=== PATIENT | male | born 1990 | race Caucasian/White ===

== ENCOUNTER 2017-04-04 12:15 | Inpatient (IN) | payer SELFPAY ==
[~2017-04-04] VITALS: Ht 188 cm; Wt 79.9 kg
--- NOTE | ~2017-04-04 | HP ---
PATIENT'S NAME: SARIAH LEIGH [facility] AGE: 26 Y [address] ROOM: [place] [address] LOCATION: GPCU ADMIT DATE: 04/04/2017 History & Physical DISCHARGE DATE: FAMILY PHYSICIAN: PHYSICIAN, NO ATTENDING PHYSICIAN: MALIA CONKLIN DATE OF SERVICE: CHIEF COMPLAINT: Hyperglycemia, HHS. HISTORY OF PRESENT ILLNESS: This is a 26-year-old male with a known history of type 1 diabetes diagnosed about four years ago, presents to the emergency room with complaints of abdominal pain and intractable nausea. The patient reports that he woke up from his sleep around midnight last night with abdominal cramping, then followed by intractable nausea and vomiting, and he has had a few episodes throughout the day. He checked his blood sugar at that point, recorded the high readings, and gave himself some short-acting insulin, but he continued to have these symptoms and blood sugars stayed high. At that point, he decided to come to the Emergency Room. Upon evaluation at the Emergency Room, the patient was found to have blood sugars in the 800s with the other lab abnormalities. The patient continued to complain of nausea and vomiting and abdominal cramping. The patient tells me that he did have dinner at a restaurant, and thinks that this might be what caused his initial symptoms, which later has led to hyperglycemia. In any case, during my evaluation, the patient is symptomatically better, and still complains of some abdominal cramping, but otherwise denies any nausea or vomiting currently. He denies any other signs and symptoms of indwelling infection including no shortness of breath or cough. No dysuria or frequency of urination type symptoms as well. PAST MEDICAL HISTORY: 1. Type 2 diabetes. 2. History of TIA versus CVA. SOCIAL HISTORY: He smokes about a pack a day. No illicit drug use. Occasional alcohol use. FAMILY HISTORY: The patient has a history of heart disease in his father. REVIEW OF SYSTEMS: All systems have been reviewed and were all negative, except as described in the HPI. PATIENT'S NAME: SARIAH LEIGH [facility] AGE: 26 Y [address] ROOM: [place] [address] LOCATION: GPCU ADMIT DATE: 04/04/2017 History & Physical DISCHARGE DATE: FAMILY PHYSICIAN: PHYSICIAN, NO ATTENDING PHYSICIAN: MALIA CONKLIN PHYSICAL EXAMINATION: VITAL SIGNS: Blood pressure was 121/79, pulse was 87, respiratory rate was 20, temperature was 97.2, and saturating 96% on room air. GENERAL: Awake, alert, and oriented x3, in moderate distress. HEENT: Dry mucosal membranes. No scleral icterus or conjunctival pallor was noted. SKIN: Without rash or lesions noted. CHEST: Clear to auscultation bilaterally. HEART: S1 and S2. Regular rate and rhythm. ABDOMEN: Soft. Mild diffuse tenderness to palpation. Otherwise, nondistended with positive bowel sounds. NEUROLOGICAL: No focal neurological deficits were noted. MUSCULOSKELETAL: No joint tenderness, swelling, or erythema was noted. LABORATORY DATA: Blood sugar 858. No ketones in urine. The pH was 7.38 and bicarb was 22. ASSESSMENT AND PLAN: 1. Hyperglycemic hyperosmolar syndrome. Blood sugar presentation is above 800, but not quite in diabetic ketoacidosis, but he is in some ketosis. The pH is 7.38 and bicarb is 22. We will treat this hyperglycemic hyperosmolar syndrome with insulin drip and aggressive fluid resuscitation. We will aim for a blood sugar less than 150 and we will convert him back to his own insulin regimen, which is insulin 70/30, 25 b.i.d. with a sliding scale on top of that. 2. Intractable nausea and vomiting, possibly related to gastroenteritis or a food-borne illness. Continue conservative management and supportive care with fluids and pain and nausea medications. This does appear to be the culprit for his hyperglycemia. The patient reports good compliance with his medications. 3. Type 1 diabetes, diagnosed about four years ago with similar presentation, except at the time, sounds like he was in diabetic ketoacidosis. MALIA CONKLIN MD BG/modl /[id number] D: [id number] T: [id number] HISTORY & PHYSICAL
--- NOTE | ~2017-04-04 | DS ---
PATIENT'S NAME: SARIAH LEIGH [facility] AGE: 26 Y [address] ROOM: [address] [address] LOCATION: GPCU ADMIT DATE: 04/04/2017 Discharge Summary DISCHARGE DATE: 04/05/2017 FAMILY PHYSICIAN: PHYSICIAN, NO ATTENDING PHYSICIAN: Rafael Barry PRINCIPAL DISCHARGE DIAGNOSIS: Hyperosmolar hyperglycemic nonketotic syndrome. SECONDARY DIAGNOSES: 1. Type 1 diabetes mellitus, uncontrolled with hemoglobin A1c greater than 10. 2. Acute kidney injury, resolved. 3. Tobaccoism. 4. Hyponatremia, resolved. 5. Hypophosphatemia, resolved. CONSULTATIONS: None. PROCEDURES: None. BRIEF HISTORY: Mr. 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 He has been buying his insulin [id number] and managing his own disease with 70/30 insulin and he thought it was well-controlled until sudden onset of nausea, vomiting, and abdominal pain. In the 24 hours prior to admission, his glucose monitor was reading high and did not come down after 2 doses of 50 units of insulin and he presented to the emergency room. On presentation, his glucose was 870, sodium 128, potassium 5.0, chloride 96, CO2 22, anion gap is normal at 15, BUN 12, and creatinine 1.4. Liver functions were normal except for an alk phos of 206, his eGFR was 68, and hemoglobin A1c 10.5 with a mean glucose of 254.7. He was started on IV fluids and IV insulin and his sugar came down nicely. Five-hours after admission, his glucose was 184. He was able to transition to subcu insulin and oral diet. He was seen by religious educator who will give him samples of Tresiba long- acting insulin then he is to have Humalog samples as well. He has been instructed to take the Tresiba daily and in addition with each meal he should take Humalog on a sliding scale 1 unit for every 50 mg/dL greater than 150 in addition to 1 unit for every 15 g of carbohydrate in the meal. The patient will establish primary care with Dr. Keene and we will encourage him to see an outside event sales specialist in [place] at his earliest PATIENT'S NAME: SARIAH LEIGH [facility] AGE: 26 Y [address] ROOM: [facility] [place], [place] [address] [facility] AD[facility] DATE: 04/04/2017 Discharge Summary DISCHARGE DATE: 04/05/2017 FAMILY PHYSICIAN: PHYSICIAN, NO ATTENDING PHYSICIAN: Rafael Barry. INSTRUCTIONS AT DISCHARGE: ADA diet with a lean protein with each meal. ACTIVITY: As tolerated. FOLLOW UP: Follow up with Dr. Keene at 2 p.m. on April to establish care and we will give him the information for the outside event sales specialist in [place] prior to discharge. MEDICATIONS AT DISCHARGE: 1. Humalog insulin as outlined above. 2. Tresiba insulin 20 units subcu daily. CONDITION AT DISCHARGE: Good. Greater than 30 minutes was spent in the discharge plan for assessment and plan. SERJIO EVANS MD LM/modl /[id number] d: 04/06/17623 t: 04/10/17 1830, DISCHARGE SUMMARY
--- NOTE | ~2017-04-04 | ER ---
PATIENT'S NAME: SARIAH STAUFFER [facility] AGE: 26 Y [address] ROOM: [place] [address] LOCATION: GPCU ADMIT DATE: 04/04/2017 ER/Outpatient Report DISCHARGE DATE: FAMILY PHYSICIAN: PHYSICIAN, NO ATTENDING PHYSICIAN: MALIA CONKLIN CHIEF COMPLAINT: Vomiting, diarrhea, and uncontrolled sugars. HISTORY OF PRESENT ILLNESS: Around midnight, Mr. Stauffer developed some diarrhea and vomiting. Since then, he has been unable to keep down much other than water. He has had significant difficulty controlling his blood sugars despite large boluses of his insulin. He is insulin-dependent diabetic for the last three years. He denies any other symptoms. No urinary issues. No cough, fevers, chills, or other symptoms prior to initiation of his presentation today. He does not have a local physician. PAST MEDICAL HISTORY: Documented on the record and reviewed by me. SOCIAL HISTORY: Documented on the record and reviewed by me. MEDICATIONS: Documented on the record and reviewed by me. ALLERGIES: DOCUMENTED ON THE RECORD AND REVIEWED BY ME. REVIEW OF SYSTEMS: All systems reviewed and negative except as noted in the HPI. PHYSICAL EXAMINATION: VITAL SIGNS: Blood pressure 121/71, pulse is 87, respiratory rate is 20, temperature 97.2, SpO2 is 96% on room air. Pain is minimal. GENERAL: Age-appropriate male, recumbent on the exam table. No apparent pain or distress. Does appear slightly ill. NEUROLOGIC: Awake and alert. GCS is 15. No focal deficits. No asymmetry. HEENT: Normocephalic, atraumatic. Eyes are PERRL. Oropharynx is slightly dry with chapped lips. NECK: Supple. Trachea is midline. CHEST/HEART: Regular rate and rhythm with no murmurs. LUNGS: Clear to auscultation bilaterally. No rhonchi, wheezes, or rales. ABDOMEN: Soft, nontender, and nondistended with no rebound or guarding. PATIENT'S NAME: SARIAH STAUFFER [facility] AGE: 26 Y [address] ROOM: [place] [address] LOCATION: GPCU ADMIT DATE: 04/04/2017 ER/Outpatient Report DISCHARGE DATE: FAMILY PHYSICIAN: PHYSICIAN, NO ATTENDING PHYSICIAN: MALIA CONKLIN BACK: Normal to inspection and palpation. EXTREMITIES: Warm, well formed, well perfused. No edema or deformities. SKIN: Clean, dry, intact. LABORATORY DATA AND X-RAYS: No imaging obtained for this patient. Labs are consistent with significant metabolic derangement. Beta hydroxybutyrate of 3.3. CMS: Sodium is 128, potassium 5.0, possibly hemolyzed, chloride is 96, CO2 is 22, anion gap is 10 or 15, pending inclusion of sodium, glucose is 870, calcium is 8, BUN is 12, creatinine 1.4, GFR 68, alkaline phosphatase is 206, otherwise unremarkable. Urinalysis with no evidence of infection, but glucosuria, serum lactate of 2.8. CBC with no appreciable abnormalities, and pH is 7.38. IMPRESSION: Likely hyperglycemic hyperosmolar state versus early diabetic ketoacidosis. EMERGENCY DEPARTMENT COURSE: The patient was seen and evaluated as above. He is technically not acidotic. He does have elevated serum ketones. He appears to be compensating relatively well at this time; however, based on his presentation, he was given 2 L of normal saline, started on maintenance 125 mL an hour and then insulin drip was initiated to help control his sugars. The patient will be admitted to the hospitalist service on the PCU unit for further evaluation and treatment of his current presentation. All questions were answered, and the patient was admitted. CRITICAL CARE TIME: 36 minutes of critical care time was spent on this patient's care is warranted for metabolic derangement in the setting of hyperglycemic hyperosmolar state and unremarkably uncontrolled diabetes. There is no obvious source of infection at this time. No clear evidence of infection on labs. Critical care time was spent on patient evaluation, ordering and interpreting labs, discussion with hospitalist, initiation of volume resuscitation, as well as insulin drip. MD CHARLEY RICHTER/tone /[id number] d: 04/05/17 1516 t: 04/10/17 0749, OUTPATIENT REPORT
[2017-04-04 12:35] LABS: BASOPHIL % 0.4 %; EOSINOPHIL # 0.2 K/uL (0.0-0.5); HEMATOCRIT 45.1 % (37.0-53.0); HEMOGLOBIN 16.2 g/dL (12.0-17.0); LYMPHOCYTE % 20.6 %; MCH 33.3 pg (27.0-34.0); MCHC 35.9 gm/dL (32.0-36.5); MCV 92.6 fl (83.0-98.0); MONOCYTE # 0.4 K/uL (0.0-1.0); MONOCYTE % 7.5 %; MPV 10.5 fl (9.4-12.4); NEUTROPHIL # (ANC) 3.4 K/uL (1.4-9.0); NEUTROPHIL % 68.5 %; NRBC % 0 /100WBC (0-0.00); PLATELET COUNT 180 K/uL (150-450); RBC 4.87 M/uL (4.00-6.00); RDW-CV 11.1 % (11.9-14.6)
[2017-04-04 12:58] LABS: ALBUMIN 3.6 gm/dL (3.5-5.0); CREATININE 1.4 mg/dL (0.6-1.3); TOTAL BILIRUBIN 0.3 mg/dL (0.0-1.5)
[2017-04-04 13:04] LABS: BILIRUBIN URINE NEGATIVE (NEGATIVE); BLOOD URINE NEGATIVE /UL (NEGATIVE); COLOR URINE COLORLESS (YELLOW); GLUCOSE URINE 1000 mg/dL (NEGATIVE); KETONE URINE NEGATIVE (NEGATIVE); LEUKOCYTES URINE NEGATIVE /UL (NEGATIVE); NITRITE URINE NEGATIVE (NEGATIVE); PROTEIN URINE NEGATIVE (NEGATIVE); SPEC GRAVITY URINE 1.005 (1.003-1.035); TURBIDITY URINE CLEAR (CLEAR); UROBILINOGEN URINE NORMAL (NORMAL)
[2017-04-04] MEDS ORDERED: NOVOLOG MI100 UNIT/M SUB-Q (15:01)
[2017-04-04 16:56] LABS: ALBUMIN 3.5 gm/dL (3.5-5.0); BLOOD UREA NITROGEN 10 mg/dL (6-24); CALCIUM 8.3 mg/dL (8.5-10.5); CHLORIDE 109 mMol/L (96-110); CO2 27 mMol/L (22-32); MAGNESIUM 2.4 mg/dL (1.8-2.6); POTASSIUM 3.4 mMol/L (3.7-5.1)
[2017-04-04 16:57] LABS: ANION GAP 9.4 (10.0-19.0); PHOSPHORUS 1.6 mg/dL (2.5-4.9); SODIUM 142 mMol/L (135-145)
[2017-04-05 00:24] LABS: ALBUMIN 3.2 gm/dL (3.5-5.0); ANION GAP 11.6 (10.0-19.0); BLOOD UREA NITROGEN 12 mg/dL (6-24); CALCIUM 8.6 mg/dL (8.5-10.5); CHLORIDE 106 mMol/L (96-110); CO2 28 mMol/L (22-32); CREATININE 0.7 mg/dL (0.6-1.3); MAGNESIUM 1.9 mg/dL (1.8-2.6); POTASSIUM 3.6 mMol/L (3.7-5.1); SODIUM 142 mMol/L (135-145)
[2017-04-05 07:17] LABS: HEMATOCRIT 41.6 % (37.0-53.0); HEMOGLOBIN 15.1 g/dL (12.0-17.0)
[2017-04-05 07:35] LABS: BLOOD UREA NITROGEN 10 mg/dL (6-24); CALCIUM 8.3 mg/dL (8.5-10.5); CHLORIDE 107 mMol/L (96-110); CO2 28 mMol/L (22-32); CREATININE 0.8 mg/dL (0.6-1.3); SODIUM 140 mMol/L (135-145)
[2017-04-05] MEDS ORDERED: TRESIBA FL100 UNIT/1 SUB-Q (15:01)
[2017-04-05] MEDS ORDERED: HUMALOG100 UNIT/1 SUB-Q ×2 (15:12→15:14)
== END 2017-04-05 16:15 | disposition disaster alternative care site (69) | DRG 642 ==
LOC: GMED 12:15 → GPCU 14:11
PROVIDERS: Emergency Medicine; Internal Medicine; Internal Medicine Interventional Cardiology; Physician Assistant Medical; ADMIT Internal Medicine
DX: E72.51 Non-ketotic hyperglycinemia (principal); N17.9 Acute kidney failure, unspecified; E10.65 Type 1 diabetes mellitus with hyperglycemia; E83.39 Other disorders of phosphorus metabolism; E87.1 Hypo-osmolality and hyponatremia; Z79.4 Long term (current) use of insulin; F17.210 Nicotine dependence, cigarettes, uncomplicated; Z86.73 Personal history of transient ischemic attack (TIA), and cerebral infarction without residual deficits
CPT/HCPCS: J3480; J7030; J7040